=== PATIENT | male | born 1970 | race American Indian/Alaskan Native ===

== ENCOUNTER 2019-04-04 11:59 | Emergency (ER) | payer MEDICARE ==
--- NOTE | 2019-04-04 12:09 | Event Note ---
ED Screening Note ED Screening Note: pt states that he feels like he is dragging his bilateral legs more than usual and having tingling in his fingers pt states he walks with a walker PMHx HLD, MS last saw a neurologist two months ago. Dr. Avitia at [facility] no ETOH, drugs, tobacco use This initial assessment/diagnostic orders/clinical plan/treatment(s) is/are subject to change based on patients health status, clinical progression and re- assessment by fellow clinical providers in the ED. Further treatment and workup at subsequent clinical providers discretion. Patient/guardian urged not to elope from the ED as their condition may be serious if not clinically assessed and managed. Initial orders include: labs pt takes lemtrada, acyclovir, dalfampridine, and baclofen
[2019-04-04] MEDS ORDERED: SOLU-Medrol IV ONE (14:26)
[2019-04-04] MEDS ORDERED: NACL 0.9% 1000 ML 1,000 ML IV ONE (14:27)
--- NOTE | 2019-04-04 14:27 | Emergency Department Report ---
- General Chief complaint: Extremity Problem,Nontraumatic Stated complaint: LEG PAIN/MS Time Seen by Provider: 04/04/19 12:02 Source: patient Mode of arrival: Ambulatory Limitations: No Limitations - History of Present Illness Initial comments: This is a 48-year-old male here reports that over the last 4 days he did have a left leg weakness and leg is dragging in with numbness and tingling to his left arm. Patient has multiple sclerosis since 2002 and he was seen a MS specialist in the past but he said he is not saying that specializes present he does have a primary care Dr. Yamilet [facility] and reported that he would like to be referred to an urologist. Patient is on medication that he takes once a year IV medication that is given in the clinic once a year for multiple sclerosis. He said he also take medication for muscle stiffness which is baclofen and medication to help him walk. Patient said that he has been doing well and today he buckled and fell down stairs. He said he feels like he is having an MS flare up because he was walking and without rolling walker for a long time and also he occasionally uses cane but he usually walks daily and that he has been able to walk with the last 4 days. Denies any fever or chills. He reports pain or extremity at 8 out of 10 on the left-sided achy. Denies any back or abdominal pain or chest pain or shortness of breath. Paresthesia and numbness to arm on the left side. Denies any difficulty breathing or swallowing. Pain is worse with movement and better with rest. His only other medical problem is elevated cholesterol. MD Complaint: generalized weakness, numbness, tingling, difficulty walking Onset/Timin -: days(s) Location: LLE (a cane pain) Severity: severe Severity scale (0 -10): 8 Quality: tingling, aching, constant Consistency: intermittent Improves with: rest Worsens with: movement, exertion Context: history of similar Associated Symptoms: other (unsteady gait). denies: chest pain, confusion, dark stools, diaphoresis, dysuria, easy bruising, fever/chills, headaches, loss of appetite, nausea/vomiting, myalgias, rash, shortness of breath, syncope - Related Data Home Medications Medication Instructions Recorded Confirmed Last Taken Acyclovir [Zovirax Tab] 400 mg PO BID 04/04/19 04/04/19 Unknown Baclofen [Lioresal] 10 mg PO 04/04/19 Unknown Dalfampridine [Ampyra] 04/04/19 Unknown Previous Rx's Medication Instructions Recorded Last Taken Type Prednisone [predniSONE 10 mg 10 mg PO .TAPER #1 tab.ds.pk 04/04/19 Unknown Rx (6-Day Pack, 21 Tabs)] Allergies Allergy/AdvReac Type Severity Reaction Status Date / Time No Known Allergies Allergy Unverified 04/04/19 12:06 ED Review of Systems ROS: Stated complaint: LEG PAIN/MS Other details as noted in HPI Constitutional: denies: chills, fever Eyes: denies: vision change ENT: denies: throat pain, congestion Respiratory: denies: cough, shortness of breath, SOB with exertion, SOB at rest, wheezing Cardiovascular: denies: chest pain, palpitations, edema, syncope Gastrointestinal: denies: abdominal pain, nausea, vomiting, hematemesis Genitourinary: denies: hematuria Musculoskeletal: arthralgia. denies: back pain, myalgia Skin: denies: rash, pruritus Neurological: weakness, numbness, paresthesias, abnormal gait. denies: confusion, vertigo ED Past Medical Hx - Past Medical History Previous Medical History?: Yes Additional medical history: MS, cholesterol - Surgical History Past Surgical History?: Yes Hx Appendectomy: Yes - Family History Family history: hypertension - Social History Smoking Status: Never Smoker Substance Use Type: None - Medications Home Medications: Home Medications Medication Instructions Recorded Confirmed Last Taken Type Acyclovir [Zovirax Tab] 400 mg PO BID 04/04/19 04/04/19 Unknown History Baclofen [Lioresal] 10 mg PO 04/04/19 Unknown History Dalfampridine [Ampyra] 04/04/19 Unknown History Prednisone [predniSONE 10 mg 10 mg PO .TAPER #1 tab.ds.pk 04/04/19 Unknown Rx (6-Day Pack, 21 Tabs)] ED Physical Exam - General Limitations: No Limitations General appearance: alert, in no apparent distress - Head Head exam: Present: atraumatic, normocephalic, normal inspection - Eye Eye exam: Present: normal appearance, PERRL, EOMI. Absent: conjunctival injection, nystagmus, periorbital swelling, periorbital tenderness Pupils: Present: normal accommodation - ENT ENT exam: Present: normal exam, normal orophraynx, mucous membranes moist, TM's normal bilaterally, normal external ear exam - Neck Neck exam: Present: normal inspection, full ROM, other (no C-spine tenderness). Absent: tenderness, meningismus, lymphadenopathy - Respiratory Respiratory exam: Present: normal lung sounds bilaterally. Absent: respiratory distress, chest wall tenderness, accessory muscle use - Cardiovascular Cardiovascular Exam: Present: regular rate, normal rhythm, normal heart sounds - GI/Abdominal GI/Abdominal exam: Present: soft, normal bowel sounds. Absent: distended, tenderness, organomegaly, mass, bruit - Expanded Upper Extremity Exam Left Shoulder Exam: Present: normal inspection. Absent: full ROM (Limited range of motion to left upper extremity with movement which is minimal), tenderness, swelling, abrasion, laceration, ecchymosis, deformity, crepidus, dislocation, erythema, tenderness over AC joint Upper Arm exam: Present: normal inspection. Absent: full ROM (Limited range of motion which is minimal), tenderness, swelling, abrasion, laceration, ecchymosis, deformity, crepidus, dislocation, erythema Elbow exam: Present: normal inspection, full ROM (Limited range of motion to elbow which is minimal). Absent: tenderness, swelling, abrasion, laceration, ecchymosis, deformity, crepidus, dislocation, erythema, effusion, pain w/ pronation/supination, tenderness over radial head Forearm Wrist exam: Present: normal inspection. Absent: tenderness, swelling, abrasion, laceration, ecchymosis, deformity, crepidus, dislocation, erythema Hand Wrist exam: Present: normal inspection, full ROM. Absent: tenderness, swelling, abrasion, laceration, ecchymosis, deformity, crepidus, dislocation, er ythema, amputation Neuro motor exam: Present: wrist extension intact, thumb opposition intact, thumb IP flexion intact, thumb adduction intact, fingers 2-5 abduction intact Neurosensory exam: Present: 2-point discrimination, radial nerve intact, ulnar nerve intact (review), median nerve intact Vascular: Present: normal capillary refill, radial pulse, brachial pulse, ulnar pulse. Absent: vascular compromise - Expanded Lower Extremity Exam Left Hip exam: Present: normal inspection, full ROM, pelvic stability. Absent: tenderness, swelling, abrasion, laceration, ecchymosis, deformity, crepidus, dislocation, erythema, external rotation, internal rotation, shortening Upper Leg exam: Present: normal inspection, full ROM. Absent: tenderness, swelling, abrasion, laceration, ecchymosis, deformity, crepidus, dislocation, erythema Knee exam: Present: normal inspection, full knee extension. Absent: full ROM (he is able to extend and flex his knee but he reports pain and weakness.), tenderness, swelling, abrasion, laceration, ecchymosis, deformity, crepidus, dislocation, erythema Lower Leg exam: Present: normal inspection. Absent: full ROM (Limited range of motion due to weakness the left lower extremity), tenderness, swelling, abrasion, laceration, ecchymosis, deformity, crepidus, dislocation, erythema, palpable cord, Colton's sign Ankle exam: Present: normal inspection, full ROM. Absent: tenderness, swelling, abrasion, laceration, ecchymosis, deformity, crepidus, dislocation, erythema Foot/Toe exam: Present: normal inspection, full ROM. Absent: tenderness, swelling, abrasion, laceration, ecchymosis, deformity, crepidus, dislocation, erythema, amputation, puncture wound, foreign body, calcaneal tenderness, tenderness at base of 5th metatarsal, nail avulsion Neuro vascular tendon exam: Present: motor deficit (patient with diminished motor movement movements to the left lower extremity), decreased fine/light touch. Absent: no vascular compromise, pulse deficit, abnormal cap refill, sensory deficit, tendon deficit, extremity cold to touch, pallor, abnormal 2- point discrimination, foot drop, peroneal nerve deficit, significant pain with passive ROM of distal joint - Back Exam Back exam: Present: normal inspection, full ROM (neurologic), other (patient ambulates with a normal gait and uses rolling walker). Absent: tenderness, CVA tenderness (R), CVA tenderness (L), muscle spasm, paraspinal tenderness, vertebral tenderness, rash noted - Neurological Exam Neurological exam: Present: alert, oriented X3, normal gait, motor sensory deficit (abnormal motor movement to left upper and lower extremity), reflexes normal (diminished reflex to left upper and lower extremity) - Expanded Neurological Exam Expanded Neurological exam: Present: ataxia (mild ataxia), tremor (minimal tremor to up her lower extremity). Absent: innattentive, memory loss-remote event, memory loss-recent event, receptive aphasia, expressive aphasia, total aphasia, protecting the airway Patient oriented to: Present: person, place, time Speech: Present: fluid speech Cranial nerves: EOM's Intact: Normal, Gag Reflex: Normal, Nystagmus: Normal, Facial Sensation: Normal, Facial Palsy with Forehead Movement: Normal, Facial Palsy without Forehead Movement: Normal Cerebellar function: Finger to Nose: Abnormal Left, Heel to Shetty: Abnormal Left, Romberg: Abnormal Left Upper motor neuron: Pronator Drift: Abnormal Left Sensory exam: Upper Extremity Light Touch: Normal, Upper Extremity Pin Prick: Normal, Upper Extremity Temperature: Normal (upper extremities there is a), Lower Extremity Light Touch: Normal (this), Lower Extremity Temperature: Normal Motor strength exam: RUE: 5, LUE: 4, LLE: 5 DTR: bicep (R): 0, bicep (L): 1+, tricep (R): 0, tricep (L): 1+, knee (R): 0, knee (L): 1+, ankle (R): 0, ankle (L): 1+ Best Eye Response ([place]): (4) open spontaneously Best Motor Response ([place]): (6) obeys commands Best Verbal Response (Re): (5) oriented [place] Total: 15 - Psychiatric Psychiatric exam: Present: normal affect, normal mood - Skin Skin exam: Present: warm, dry, intact, normal color. Absent: rash - Assessment Assessment Interval: Baseline - Level of Consciousness 1a. Level of Consciousness: alert/keenly responsive - LOC Questions 1b. LOC Questions: answers both correctly - LOC Command 1c. LOC Commands: performs tasks correctly - Best Gaze 2. Best Gaze: normal - Visual 3. Visual: no visual loss - Facial Palsy 4. Facial Palsy: normal symmetrical movement - Motor Arm 5a. Motor Arm Left: drift 5b. Motor Arm Right: no drift - Motor Leg 6a. Motor Leg Left: some gravity effort 6b. Motor Leg Right: drift - Limb Ataxia 7. Limb Ataxia: present 2 limbs - Sensory 8. Sensory: normal - Best Language 9. Best Language: no aphasia - Dysarthria 10. Dysarthria: normal - Extinction and Inattention 11. Extinction/Inattention: no abnormality (Patient with MS since 2002 has been 3 and having a flare) - Scoring Total Score: 6 Stroke Severity: Moderate Stroke ED Course Vital Signs 04/04/19 12:03 Temperature 97.7 F Pulse Rate 91 H Respiratory 17 Rate Blood Pressure 155/92 O2 Sat by Pulse 98 Oximetry Vital Signs 04/04/19 04/04/19 12:03 17:13 Temperature 97.7 F 97.8 F Pulse Rate 91 H 65 Respiratory 17 16 Rate Blood Pressure 155/92 Blood Pressure 146/98 [Right] O2 Sat by Pulse 98 Oximetry - Reevaluation(s) Reevaluation #1: 04/04/19 17:24 Patient was given Solu-Medrol 125 mg IV and 1 L of normal saline and after reevaluation is this feeling better. I suspect patient was exposed to hot weather over the last 4 days and has MS flare. He does not have a neurologist was present but I will refer him to neurology. ED Medical Decision Making - Lab Data Result diagrams: 04/04/19 13:34 04/04/19 13:34 Lab Results 04/04/19 04/04/19 Range/Units 13:34 13:34 WBC 9.4 (4.5-11.0) K/mm3 RBC 4.72 (3.65-5.03) M/mm3 Hgb 14.8 (11.8-15.2) gm/dl Hct 43.0 (35.5-45.6) % MCV 91 (84-94) fl MCH 31 (28-32) pg MCHC 34 (32-34) % RDW 13.7 (13.2-15.2) % Plt Count 279 (140-440) K/mm3 Lymph % (Auto) 7.9 L (13.4-35.0) % Thomas % (Auto) 7.4 H (0.0-7.3) % Eos % (Auto) 1.1 (0.0-4.3) % Baso % (Auto) 1.6 (0.0-1.8) % Lymph # 0.7 L (1.2-5.4) K/mm3 Thomas # 0.7 (0.0-0.8) K/mm3 Eos # 0.1 (0.0-0.4) K/mm3 Baso # 0.2 H (0.0-0.1) K/mm3 Seg Neutrophils % 82.0 H (40.0-70.0) % Seg Neutrophils # 7.7 (1.8-7.7) K/mm3 Sodium 144 (137-145) mmol/L Potassium 4.1 (3.6-5.0) mmol/L Chloride 106.3 (98-107) mmol/L Carbon Dioxide 25 (22-30) mmol/L Anion Gap 17 mmol/L BUN 12 (9-20) mg/dL Creatinine 0.9 (0.8-1.5) mg/dL Estimated GFR > 60 ml/min BUN/Creatinine Ratio 13 % Glucose 87 (75-100) mg/dL Calcium 9.2 (8.4-10.2) mg/dL - Medical Decision Making Patients with multiple sclerosis flare up over the last 4 days and fell and physical findings with no bruising or findings for bony abnormality or need for x-ray. His lab work was stable except for minor abnormality in CBC. Patient go es to eat a [facility] practice and he will be calling tomorrow to schedule an appointment for follow-up visit and to have them refer him to a neurologist that specializes in multiple sclerosis. In the meantime I told him I will refer him to a neurologist but either way he needs to call and schedule an appointment for new patient visit with neurologist. I also let them know that he needs to let them know that he was in the emergency room today for MS flareup and was given steroid IV and IV fluid and sent home with steroids and he voiced understanding. He is a lot better per patient and his vital signs are stable. Patient was given Solu-Medrol 125 mg IV 1 L normal saline emergency room. Patient discharged home in stable condition with prescription for prednisone Dosepak. Critical care attestation.: If time is entered above; I have spent that time in minutes in the direct care of this critically ill patient, excluding procedure time. ED Disposition Clinical Impression: Multiple sclerosis exacerbation, Gait disturbance, Numbness and tingling of left upper extremity Disposition: DC-01 TO HOME OR SELFCARE Is pt being admited?: No Does the pt Need Aspirin: No Condition: Stable Instructions: Weakness (ED), Fall Prevention (ED), Musculoskeletal Pain (ED), Paresthesia (ED), Self-Care Measures with a Chronic Disease (ED) Additional Instructions: Please remember to call your primary care physician at [facility] in the morning to schedule an appointment for follow-up visit after being seen in the emergency room for multiple sclerosis flare Increase the fluid intake and avoid heat exposure for long periods Take medication as prescribed Please follow up with neurologist or have U primary care doctor refer you to neurologist that specializes in multiple sclerosis Prescriptions: Prednisone [predniSONE 10 mg (6-Day Pack, 21 Tabs)] 10 mg PO .TAPER #1 tab.ds.pk Referrals: TR RIVERA MD [Primary Care Provider] - 04/05/19
[2019-04-04 14:36] LABS: BUN/Creatinine Ratio 13; Blood Urea Nitrogen 12 mg/dL (9-20); Calcium 9.2 mg/dL (8.4-10.2); Hemolysis Index 26
[2019-04-04 14:41] LABS: Basophils # (Auto) 0.2 K/mm3 (0.0-0.1); Basophils % (Auto) 1.6 % (0.0-1.8); Eosinophils # (Auto) 0.1 K/mm3 (0.0-0.4); Eosinophils % (Auto) 1.1 % (0.0-4.3); Hemoglobin 14.8 gm/dl (11.8-15.2); Lymphocytes # (Auto) 0.7 K/mm3 (1.2-5.4); Lymphocytes % (Auto) 7.9 % (13.4-35.0); Mean Corpuscular HGB Conc 34 % (32-34); Mean Corpuscular Volume 91 fl (84-94); Monocytes # (Auto) 0.7 K/mm3 (0.0-0.8); Monocytes % (Auto) 7.4 % (0.0-7.3); Platelet Count 279 K/mm3 (140-440); Red Blood Count 4.72 M/mm3 (3.65-5.03); Red Cell Distribution Width 13.7 % (13.2-15.2)
[2019-04-04 17:13] VITALS: BP 146/98
== END 2019-04-04 17:42 | disposition home or self-care (01) ==
LOC: ED 11:59
DX: G35 Multiple sclerosis (principal); E78.00 Pure hypercholesterolemia, unspecified; Z90.89 Acquired absence of other organs; W10.9XXA Fall (on) (from) unspecified stairs and steps, initial encounter; Y93.89 Activity, other specified; Y92.89 Other specified places as the place of occurrence of the external cause; Y99.8 Other external cause status
CPT/HCPCS: 36415; 80048; 85025; 96374; 99283; J2930; J7030; 96361

== ENCOUNTER 2020-08-09 07:08 | Emergency (ER) | payer MEDICARE ==
[2020-08-09] MEDS ORDERED: dexAMETHasone 20 MG/5 ML VIAL IV ONE (11:00)
[2020-08-09] MEDS ORDERED: methylPREDNISolone Sod Suc 1,000 MG in SODIUM CHLORIDE 0.9% 250ML 250 ML IV ONE (11:08)
--- NOTE | 2020-08-09 11:30 | Emergency Department Report ---
ED General Adult HPI - General Chief complaint: Weakness Stated complaint: LOWER BACK PAIN Time Seen by Provider: 08/09/20 10:33 Source: patient Mode of arrival: Ambulatory Limitations: No Limitations - History of Present Illness Initial comments: 50-year-old -Armenian male patient presents with complaints of multiple sclerosis exacerbation x5 days. He states he chronically has left-sided weakness in his arm and leg due to his MS in when he has an exacerbation the weakness gets worse. He denies any headache, dizziness, confusion, difficulty with speech/moving his face, back pain, or recent injuries. He also denies any history of CVA/NE/DVT/PE. Patient states he was not able to see his neurologist and is requesting Solu-Medrol 1 g IV for 3 days. - Related Data Home Medications Medication Instructions Recorded Confirmed Last Taken Acyclovir [Zovirax Tab] 400 mg PO BID 04/04/19 04/04/19 Unknown Baclofen [Lioresal] 10 mg PO 04/04/19 Unknown Dalfampridine [Ampyra] 04/04/19 Unknown Previous Rx's Medication Instructions Recorded Last Taken Type Prednisone [predniSONE 10 mg 10 mg PO .TAPER #1 tab.ds.pk 04/04/19 Unknown Rx (6-Day Pack, 21 Tabs)] Allergies Allergy/AdvReac Type Severity Reaction Status Date / Time No Known Allergies Allergy Verified 08/09/20 07:16 ED Review of Systems ROS: Stated complaint: LOWER BACK PAIN Other details as noted in HPI Constitutional: weakness. denies: chills, diaphoresis, fever, malaise Eyes: denies: eye pain, vision change Respiratory: denies: cough, shortness of breath Cardiovascular: denies: palpitations Endocrine: denies: excessive sweating Gastrointestinal: denies: abdominal pain Genitourinary: denies: dysuria, frequency, hematuria Skin: denies: change in color Neurological: weakness (Chronic, states somewhat worse for the past 5 days), numbness (Chronic, denies any change), paresthesias (Chronic, denies any change), abnormal gait (Chronic, states somewhat worse for the past 5 days). denies: headache, confusion, vertigo Hematological/Lymphatic: denies: easy bleeding ED Past Medical Hx - Past Medical History Additional medical history: MS, cholesterol - Surgical History Hx Appendectomy: Yes - Social History Smoking Status: Never Smoker - Medications Home Medications: Home Medications Medication Instructions Recorded Confirmed Last Taken Type Acyclovir [Zovirax Tab] 400 mg PO BID 04/04/19 04/04/19 Unknown History Baclofen [Lioresal] 10 mg PO 04/04/19 Unknown History Dalfampridine [Ampyra] 04/04/19 Unknown History Prednisone [predniSONE 10 mg 10 mg PO .TAPER #1 tab.ds.pk 04/04/19 Unknown Rx (6-Day Pack, 21 Tabs)] ED Physical Exam - General Limitations: No Limitations General appearance: alert, in no apparent distress - Head Head exam: Present: atraumatic, normocephalic - Eye Eye exam: Present: normal appearance. Absent: scleral icterus - Neck Neck exam: Present: normal inspection, full ROM - Respiratory Respiratory exam: Present: normal lung sounds bilaterally. Absent: respiratory distress - Cardiovascular Cardiovascular Exam: Present: regular rate, normal rhythm. Absent: systolic murmur, diastolic murmur, rubs, gallop - Extremities Exam Extremities exam: Present: full ROM - Back Exam Back exam: Present: full ROM. Absent: tenderness - Neurological Exam Neurological exam: Present: alert, oriented X3, abnormal gait (Shuffling type gait) - Expanded Neurological Exam Expanded Cerebellar function: Finger to Nose: Normal, Heel to Shetty: Normal, Romberg: Normal Motor strength exam: RUE: 5, LUE: 5, RLE: 5, LLE: 5 - Psychiatric Psychiatric exam: Present: normal affect, normal mood - Skin Skin exam: Present: warm, dry, intact, normal color. Absent: rash, cyanosis, diaphoretic ED Course Vital Signs 08/09/20 08/09/20 07:16 12:14 Temperature 99.1 F Pulse Rate 72 63 Respiratory 18 18 Rate Blood Pressure 133/85 Blood Pressure 142/89 [Right] O2 Sat by Pulse 100 100 Oximetry ED Medical Decision Making - Medical Decision Making 50-year-old -Armenian male patient presents with complaints of multiple sclerosis exacerbation x5 days. He states he chronically has left-sided weakness in his arm and leg due to his MS in when he has an exacerbation the weakness gets worse. He denies any headache, dizziness, confusion, difficulty with speech/moving his face, back pain, or recent injuries. He also denies any history of CVA/NE/DVT/PE. He states he feels more off balance than normal. Patient states he was not able to see his neurologist and is requesting Solu- Medrol 1 g IV for 3 days. No significant weakness of the left side of the body noted on exam. Patient is able to self ambulate, however states it is easier to ambulate with a walker. Spoke with patient's neurologist, Dr. 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 She states that as long as the patient understands the risk of reactivation of the SHALONDA virus that she will treat his multiple sclerosis exacerbation via sending a nurse to his home for IV Solu-Medrol 1 g for 3 days. Patient states he is aware of the risk of the SHALONDA virus activation and states he will follow-up with his neurologist today for treatment. This was discussed in detail with Dr. Waddell who is also aware of plan. He is well-appearing, his vitals are stable, he is stable for discharge home. Strict return precautions were discussed in detail with patient who verbalizes understanding Critical care attestation.: If time is entered above; I have spent that time in minutes in the direct care of this critically ill patient, excluding procedure time. ED Disposition Clinical Impression: Multiple sclerosis exacerbation Disposition: DC-01 TO HOME OR SELFCARE Is pt being admited?: No Condition: Stable Additional Instructions: Please follow-up with your neurologist, Dr. Gilda Busch, today for further treatment and evaluation. Referrals: JORDAN ZARAGOZA [Other] - 3-5 Days
[2020-08-09] MEDS: methylPREDNISolone Sod Suc 1,000 MG in SODIUM CHLORIDE 0.9% 250ML 250 ML IV ONE ×2 (11:57→12:05)
[2020-08-09 12:16] VITALS: BP 142/89
== END 2020-08-09 12:16 | disposition home or self-care (01) ==
LOC: ED 07:08
DX: G35 Multiple sclerosis (principal); Z90.49 Acquired absence of other specified parts of digestive tract; Z79.899 Other long term (current) drug therapy
CPT/HCPCS: 99282; J2930; J7050